=== PATIENT | male | born 1995 ===

== ENCOUNTER 2020-12-07 16:38 | Emergency (ER) | payer BC, SELFPAY ==
[2020-12-07] VITALS (18 sets, daily range): BP systolic 126–139; BP diastolic 67–85; PULSE 68–97; RESP 15–27; TEMP 36.5; O2SAT 96–100
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
[2020-12-07] MEDS: Ibuprofen 600 MG TAB PO (17:44)
[2020-12-07] MEDS: Ondansetron O.D.T. 4 MG TABEF PO (17:44)
== END 2020-12-07 19:20 | disposition home or self-care (01) ==
PROVIDERS: Emergency Provider Physician Assistant
DX: M54.2 Cervicalgia (principal); R11.0 Nausea; S80.211A Abrasion, right knee, initial encounter; S80.812A Abrasion, left lower leg, initial encounter; V47.5XXA Car driver injured in collision with fixed or stationary object in traffic accident, initial encounter
CPT/HCPCS: 99283

== ENCOUNTER 2020-12-29 09:14 | Outpatient (REF) | payer BC, SELFPAY ==
[2020-12-31 09:41] LABS: HIV-1/2 Ag & Ab Screen Negative (Negative)
[2020-12-31 19:38] LABS: Chlamydia Result Negative (Negative); GC Result Negative (Negative)
== END 2020-12-29 09:15 | disposition home or self-care (01) ==
LOC: NCHCN 09:14
PROVIDERS: Visit Provider Registered Nurse
DX: Z11.4 Encounter for screening for human immunodeficiency virus [HIV] (principal); Z11.3 Encounter for screening for infections with a predominantly sexual mode of transmission
CPT/HCPCS: 87389; 87491; 87591

== ENCOUNTER 2022-12-15 15:32 | Outpatient (REF) | payer MEDICAID, SELFPAY ==
[2022-12-15 14:38] LABS: ALT 49 U/L (16-63); AST 30 U/L (15-37); Albumin 3.9 g/dL (3.4-5.0); Alkaline Phosphatase 61 U/L (46-116); Anion Gap 7.3 mmol/L (3-11); BUN 11 mg/dL (7-18); Bilirubin, Total 0.4 mg/dL (0.2-1.0); CO2 28.7 mmol/L (21.0-32.0); CREATININE 1.1 mg/dL (0.70-1.30); Calculated LDL 154 mg/dL (<100); Chloride 102 mmol/L (98-107); Cholesterol 232 mg/dL (<200); Estimated GFR 93.77 (mL/min/1.73m2); Glucose 94 mg/dL (74-106); HDL Cholesterol 60 mg/dL (40-60); Sodium 138 mmol/L (136-145); Triglyceride 94 mg/dL (<150)
== END 2022-12-15 15:33 | disposition home or self-care (01) ==
LOC: NCHCN 15:32
PROVIDERS: Visit Provider Registered Nurse
DX: Z00.00 Encounter for general adult medical examination without abnormal findings (principal); B18.1 Chronic viral hepatitis B without delta-agent
CPT/HCPCS: 80053; 80061